=== PATIENT | female | born 1950 | race Caucasian/White ===

== ENCOUNTER → 2018-05-08 11:23 | Outpatient (CLI) | payer OTHER, SELFPAY ==
--- NOTE | 2018-05-08 | DI.MG.S_ITS ---
BILATERAL DIGITAL SCREENING MAMMOGRAM 3D/2D WITH CAD: 05/08/2018 CLINICAL: Routine screening. Comparison is made to exams dated: 03/10/2017 mammogram - [facility] and 04/06/2015 mammogram - [facility] [place]. The tissue of both breasts is heterogeneously dense. This may lower the sensitivity of mammography. Current study was also evaluated with a Computer Aided Detection (CAD) system. There is a benign biopsy clip in the left breast. No significant masses, calcifications, or other findings are seen in either breast. There has been no significant interval change. IMPRESSION: NEGATIVE There is no mammographic evidence of malignancy. A 1 year screening mammogram is recommended. This exam was interpreted at Station ID: [id number]. NOTE: For mammograms, a report in lay terms will be sent to the patient. Approximately 15% of breast malignancies will not be visualized mammographically. In the management of a palpable breast mass, a negative mammogram must not discourage biopsy of a clinically suspicious lesion. Electronically Signed By: Kwaku potter/rio:05/08/2018 16:47:36 letter sent: Normal Exam ACR BI-RADS Category 1: Negative 3341F
== END ==
PROVIDERS: Family Provider Family Medicine; PCP Family Medicine; Visit Provider Family Medicine
DX: Z12.31 Encounter for screening mammogram for malignant neoplasm of breast (principal)
CPT/HCPCS: 77063; 77067

== ENCOUNTER → 2018-09-23 11:06 | Outpatient (CLI) | payer OTHER, SELFPAY ==
--- NOTE | 2018-09-23 11:09 | DI.RAD.S_ITS ---
PROCEDURE: XR ANKLE LT MIN 3V INDICATIONS: Twisted ankle, swelling, bruising and pain TECHNIQUE: 3 views of the ankle were acquired. COMPARISON: None. FINDINGS: Bones: No fractures or dislocations. Ankle mortise is normally aligned. No suspicious bony lesions. Soft tissues: No tibiotalar joint effusion. Achilles tendon appears normal. IMPRESSION: No acute fracture. No osseous lesion. If symptoms or clinical suspicion for pathology persists, repeat plain films, or advanced imaging (CT, bone scan, or MRI) may be helpful for further assessment. Dictated by: Raisa Parry M.D. on 09/23/2018 at 10:21 Approved by: Raisa Parry M.D. on 09/23/2018 at 10:22
== END ==
PROVIDERS: PCP Family Medicine; Visit Provider Physician Assistant
DX: S99.812A Other specified injuries of left ankle, initial encounter (principal); X58.XXXA Exposure to other specified factors, initial encounter
CPT/HCPCS: 73610

== ENCOUNTER → 2018-11-09 11:28 | Outpatient (CLI) | payer OTHER, SELFPAY ==
--- NOTE | 2018-11-09 | DI.RAD.S_ITS ---
PROCEDURE: XR KNEE RT 3V INDICATIONS: KNEE PAIN TECHNIQUE: 3 views of the knee were acquired. COMPARISON: None. FINDINGS: Bones: No fractures or dislocations. No suspicious bony lesions. Scattered degenerative subchondral sclerosis and spurring. Mild lateral patellar tilt. Minimal narrowing of the medial joint space. Soft tissues: No joint effusion. No suspicious soft tissue calcifications. IMPRESSION: Mild right knee joint degeneration. Dictated by: Dave Glasgow M.D. on 11/09/2018 at 13:51 Approved by: Dave Glasgow M.D. on 11/09/2018 at 13:52
--- NOTE | 2018-11-09 | DI.RAD.S_ITS ---
PROCEDURE: XR KNEE LT 3V INDICATIONS: KNEE PAIN TECHNIQUE: 3 views of the knee were acquired. COMPARISON: None. FINDINGS: Bones: No fractures or dislocations. No suspicious bony lesions. Scattered degenerative subchondral sclerosis and spurring. Mild narrowing of the patellofemoral joint space. Soft tissues: No joint effusion. No suspicious soft tissue calcifications. IMPRESSION: Mild left knee joint degeneration as above. Dictated by: Dave Glasgow M.D. on 11/09/2018 at 13:50 Approved by: Dave Glasgow M.D. on 11/09/2018 at 13:51
== END ==
PROVIDERS: Visit Provider Student in an Organized Health Care Education/Training Program
DX: M25.561 Pain in right knee (principal); M25.562 Pain in left knee; M17.0 Bilateral primary osteoarthritis of knee
CPT/HCPCS: 73562

== ENCOUNTER → 2019-03-22 14:11 | Outpatient (CLI) | payer OTHER, SELFPAY | PROVIDERS: PCP Student in an Organized Health Care Education/Training Program; Visit Provider Student in an Organized Health Care Education/Training Program | DX: M85.88 Other specified disorders of bone density and structure, other site (principal); Z78.0 Asymptomatic menopausal state; E07.9 Disorder of thyroid, unspecified; Z87.891 Personal history of nicotine dependence | CPT/HCPCS: 77080 ==

== ENCOUNTER → 2020-04-07 11:49 | Outpatient (CLI) | payer OTHER, SELFPAY ==
--- NOTE | 2020-04-07 | DI.MG.S_ITS ---
BILATERAL DIGITAL SCREENING MAMMOGRAM 3D/2D WITH CAD: 04/07/2020 CLINICAL: Routine screening. Comparison is made to exams dated: 05/08/2018 mammogram, 03/10/2017 mammogram - [facility], and 04/06/2015 mammogram - [facility]. The tissue of both breasts is heterogeneously dense. This may lower the sensitivity of mammography. Current study was also evaluated with a Computer Aided Detection (CAD) system. There are benign calcifications in the left breast. There also is a biopsy clip in the left breast. No significant masses, calcifications, or other findings are seen in either breast. There has been no significant interval change. IMPRESSION: BENIGN There is no mammographic evidence of malignancy. A 1 year screening mammogram is recommended. This exam was interpreted at Station ID: [id number]. NOTE: For mammograms, a report in lay terms will be sent to the patient. Approximately 15% of breast malignancies will not be visualized mammographically. In the management of a palpable breast mass, a negative mammogram must not discourage biopsy of a clinically suspicious lesion. Electronically Signed By: Kwaku potter/rio:04/07/2020 15:36:57 letter sent: Normal Exam ACR BI-RADS Category 2: Benign Finding(s) 3342F
== END ==
PROVIDERS: PCP Student in an Organized Health Care Education/Training Program; Referring Provider Student in an Organized Health Care Education/Training Program; Visit Provider Student in an Organized Health Care Education/Training Program
DX: Z12.31 Encounter for screening mammogram for malignant neoplasm of breast (principal)
CPT/HCPCS: 77063; 77067

== ENCOUNTER → 2021-03-10 12:39 | Outpatient (CLI) | payer OTHER, SELFPAY | PROVIDERS: PCP Student in an Organized Health Care Education/Training Program; Referring Provider Student in an Organized Health Care Education/Training Program; Visit Provider Student in an Organized Health Care Education/Training Program | DX: Z78.0 Asymptomatic menopausal state (principal); M85.852 Other specified disorders of bone density and structure, left thigh; E07.9 Disorder of thyroid, unspecified; Z87.891 Personal history of nicotine dependence | CPT/HCPCS: 77080 ==

== ENCOUNTER → 2021-04-13 16:29 | Outpatient (ROUT) | payer OTHER, SELFPAY | PROVIDERS: PCP Student in an Organized Health Care Education/Training Program; Visit Provider Dermatology | DX: L23.9 Allergic contact dermatitis, unspecified cause (principal); L08.9 Local infection of the skin and subcutaneous tissue, unspecified | CPT/HCPCS: 87070; 87075; 87102; 87205 ==

== ENCOUNTER → 2021-04-27 16:37 | Outpatient (CLI) | payer OTHER, SELFPAY ==
--- NOTE | 2021-04-27 | DI.MG.S_ITS ---
BILATERAL DIGITAL SCREENING MAMMOGRAM 3D/2D WITH CAD: 04/27/2021 CLINICAL: Routine screening. Comparison is made to exams dated: 05/08/2018 mammogram, 03/10/2017 mammogram - [facility], and 04/06/2015 mammogram - [facility]. The tissue of both breasts is heterogeneously dense. This may lower the sensitivity of mammography. Current study was also evaluated with a Computer Aided Detection (CAD) system. There are benign calcifications in the left breast. There also is a biopsy clip in the left breast. No significant masses, calcifications, or other findings are seen in either breast. There has been no significant interval change. IMPRESSION: BENIGN There is no mammographic evidence of malignancy. A 1 year screening mammogram is recommended. This exam was interpreted at Station ID: [id number]. NOTE: For mammograms, a report in lay terms will be sent to the patient. Approximately 15% of breast malignancies will not be visualized mammographically. In the management of a palpable breast mass, a negative mammogram must not discourage biopsy of a clinically suspicious lesion. Electronically Signed By: Ace Hylton M.D., jr/rio:04/28/2021 09:26:13 letter sent: Normal Exam ACR BI-RADS Category 2: Benign Finding(s) 3342F
== END ==
PROVIDERS: PCP Student in an Organized Health Care Education/Training Program; Referring Provider Student in an Organized Health Care Education/Training Program; Visit Provider Student in an Organized Health Care Education/Training Program
DX: Z12.31 Encounter for screening mammogram for malignant neoplasm of breast (principal)
CPT/HCPCS: 77063; 77067

== ENCOUNTER → 2021-06-07 09:39 | Outpatient (CLI) | payer OTHER, SELFPAY ==
--- NOTE | 2021-06-22 12:10 | P.HOLT.S_ITS ---
[employer] Report Referral & Results Date Patient Seen: 06/07/21 Requesting provider: Nusrat Ferrera Indication: Palpitations Duration of monitoring (days): 7 Diary information: there were 10 patient triggered events and 10 patient diary entries Patient triggered events were variably associated with (within 45 seconds) sinus rhythm, simple PVCs, simple PACs, ventricular bigeminy, and SVT Patient diary events were associated with ( within 45 seconds) sinus rhythm and simple PACs Data: Minimum heart rate identified was 44 beats per minute at 03:26 on 06/12/2021 Maximum sinus heart rate was 140 beats per minute at 08:50 on 06/14/2021 maximum overall heart rate was 164 beats per minute at 12:19 on 06/11/2021 Less than 1% of identified beats were ventricular or supraventricular ectopic in origin, which would classify them as rare. 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 No serious dysrhythmias identified on this study
== END ==
PROVIDERS: PCP Student in an Organized Health Care Education/Training Program; Referring Provider Student in an Organized Health Care Education/Training Program; Visit Provider Student in an Organized Health Care Education/Training Program
DX: R00.2 Palpitations (principal)
CPT/HCPCS: 93242; 93244

== ENCOUNTER → 2021-06-07 10:02 | Outpatient (CLI) | payer OTHER, SELFPAY ==
--- NOTE | 2021-06-07 | DI.RAD.S_ITS ---
PROCEDURE: XR CHEST 2V INDICATIONS: R002 Palpitations TECHNIQUE: 2 views of the chest were acquired. COMPARISON: None. FINDINGS: Surgical changes and devices: Electronic device is seen projecting over the left chest. Lungs and pleura: Lungs are clear. No pleural effusions or pneumothorax. Mediastinum: Mediastinal contours are normal. Heart size is normal. Mild aortic atherosclerotic calcifications. Bones and chest wall: No suspicious bony abnormalities. Soft tissues appear unremarkable. Degenerative changes are seen in the spine. IMPRESSION: No acute cardiopulmonary abnormality. Dictated by: Jamison Bourne M.D. on 06/07/2021 at 13:37 Approved by: Jamison Bourne M.D. on 06/07/2021 at 13:37
== END ==
PROVIDERS: PCP Student in an Organized Health Care Education/Training Program; Referring Provider Student in an Organized Health Care Education/Training Program; Visit Provider Student in an Organized Health Care Education/Training Program
DX: R00.2 Palpitations (principal); I70.0 Atherosclerosis of aorta
CPT/HCPCS: 71046; 93242

== ENCOUNTER → 2021-06-17 09:40 | Outpatient (CLI) | payer OTHER, SELFPAY ==
--- NOTE | 2021-06-17 | DI.ECHO.S_ITS ---
[facility]---------+ [facility] +---------+ : : [address] : : : : [id number] : : : : Phone: [phone]+ Echocardiogram Report + + :Name: HUMZA YI Study Date: 06/17/2021 Height: 70 in : :[facility] ReadingLocation: Weight: 185 lb : : Gender: Female BSA: 2.0 m2 : :: 1950 Age: 70 yrs BP: 117/81 mmHg: :Reason For Study: PALPITATIONS : :Ordering Physician: CLAUDIO, : :ANNE Performed By: Carol Cohen : :Referring: ANNE SNYDER : + + Interpretation Summary Sinus bradycardia. Heart rate is 54-60 bpm. Normal LV size and wall thickness; normal wall motion and LV systolic function. EF is 60-65%. Normal chamber sizes. No significant valvular abnormalities. Procedure: A two-dimensional transthoracic echocardiogram with color flow and Doppler was performed. The study quality was technically adequate. There is no prior echocardiogram noted for this patient. The patient was in sinus bradycardia with heart rates between 54-60 bpm during the exam. Left Ventricle: The left ventricle is normal in size and wall thickness. The ejection fraction is estimated to be 60-65%. Right Ventricle: The right ventricle is normal in size and function. Atria: The left atrial size is normal. Right atrial size is normal. There is no Doppler evidence for an interatrial shunt. Mitral Valve: The mitral valve is normal in structure and function. There is mild mitral regurgitation. Aortic Valve: The aortic valve is slightly calcified. There is no aortic valve stenosis. No aortic regurgitation is present. Tricuspid Valve: The tricuspid valve is normal in structure and function. There is trace tricuspid regurgitation. Pulmonic Valve: The pulmonic valve leaflets are thin and pliable; valve motion is normal. There is mild pulmonic regurgitation. Great Vessels: The aortic root is normal size. The ascending aorta is mildly enlarged. The IVC is of normal diameter and collapses greater than 50% with a sniff. This suggests a low right atrial pressure of 3 mm Hg. Pericardium/ Pleura There is no pericardial effusion. There is no pleural effusion. MMode/2D Measurements & Calculations LVIDd: 4.6 cm LVOT diam: 2.0 cm LVIDs: 3.0 cm Ao root diam: 3.1 cm FS: 35.3 % asc Aorta Diam: 3.9 cm IVSd: 0.88 cm Ao Arch Diam (Prox Trans): 2.6 cm LVPWd: 0.73 cm LV arriaga. diameter/BSA (cm/m^2): 2.3 LV sys. diameter/BSA (cm/m^2): 1.5 LA A2 area: 16.7 cm2 RA long axis: 4.4 cm LA A4 area: 14.0 cm2 RA area: 13.7 cm2 LA length (vol): 4.8 cm RA vol: 35.8 ml LA vol: 41.4 ml RA : 17.7 ml/m2 LA vol index: 20.5 ml/m2 IVC diam: 1.5 cm RVD1 (basal): 3.3 cm RVD2 (mid): 3.0 cm TAPSE: 2.2 cm Doppler Measurements & Calculations Ao V2 max: 149.3 cm/sec LVOT Max Eleazar: 95.4 cm/sec Ao V2 mean: 107.8 cm/sec LV V1 max P.6 mmHg Ao max P.9 mmHg LV V1 VTI: 21.4 cm Ao mean P.1 mmHg DOC(I,D): 1.7 cm2 Ao V2 VTI: 38.1 cm DOC(V,D): 1.9 cm2 sev ratio: 0.56 DOC indexed to BSA (cm^2/m^2): 0.84 MV E max eleazar: 72.3 cm/sec PA V2 max: 89.8 cm/sec MV A max eleazar: 96.1 cm/sec PA V2 mean: 62.5 cm/sec MV E/A: 0.75 PA mean P.7 mmHg Med Peak E' Eleazar: 5.9 cm/sec PA pr(Accel): 36.2 mmHg E/E' med: 12.2 Lat Peak E' Eleazar: 11.0 cm/sec E/E' lat: 6.6 E/e' average: 9.4 MV dec time: 0.40 sec SV(LVOT): 64.8 ml Electronically signed by: Oumou Eric M.D. on Reading Physician:06/18/2021 12:37 AM
== END ==
PROVIDERS: PCP Student in an Organized Health Care Education/Training Program; Referring Provider Student in an Organized Health Care Education/Training Program; Visit Provider Student in an Organized Health Care Education/Training Program
DX: I34.0 Nonrheumatic mitral (valve) insufficiency (principal); R00.2 Palpitations
CPT/HCPCS: 93306

== ENCOUNTER → 2021-09-07 14:56 | Outpatient (CLI) | payer OTHER, SELFPAY ==
--- NOTE | 2021-09-07 | DI.RAD.S_ITS ---
PROCEDURE: XR KNEE LT 3V INDICATIONS: left knee pain TECHNIQUE: 3 views of the knee were acquired. COMPARISON: [facility], CR, XR KNEE RT 3V, 11/09/2018, 11:41. FINDINGS: Bones: Moderate medial lateral compartmental joint space narrowing. Small lateral marginal osteophyte present. Soft tissues: No joint effusion. No suspicious soft tissue calcifications. IMPRESSION: Moderate osteoarthritis Approved by: Peewee Schmitt M.D. on 09/07/2021 at 16:48
== END ==
PROVIDERS: PCP Student in an Organized Health Care Education/Training Program; Referring Provider Student in an Organized Health Care Education/Training Program; Visit Provider Student in an Organized Health Care Education/Training Program
DX: M25.562 Pain in left knee (principal); M17.12 Unilateral primary osteoarthritis, left knee
CPT/HCPCS: 73562

== ENCOUNTER → 2022-05-19 15:02 | Outpatient (CLI) | payer MEDICARE, OTHER, SELFPAY ==
--- NOTE | 2022-05-19 15:07 | DI.MG.S_ITS ---
BILATERAL DIGITAL SCREENING MAMMOGRAM 3D/2D WITH CAD: 05/19/2022 CLINICAL: Routine screening. Comparison is made to exams dated: 04/27/2021 mammogram, 04/07/2020 mammogram, and 05/08/2018 mammogram - [facility]. Both breasts are heterogeneously dense, which may obscure small masses (category c / 51-75% glandular tissue). Current study was also evaluated with a Computer Aided Detection (CAD) system. There are benign calcifications in the left breast. There also is a biopsy clip in the left breast. No significant masses, calcifications, or other findings are seen in either breast. There has been no significant interval change. IMPRESSION: BENIGN There is no mammographic evidence of malignancy. A 1 year screening mammogram is recommended. Based on the Tyrer Cuzick model (a risk assessment model) the patient's lifetime risk is 7.5% and her 10 year risk is 5.1%. According to the ACR, ACS, and NCCN guidelines, an annual breast MRI exam along with mammogram is recommended if the patient's lifetime risk is 20% or greater. This exam was interpreted at Station ID: [id number]. NOTE: For mammograms, a report in lay terms will be sent to the patient. Approximately 15% of breast malignancies will not be visualized mammographically. In the management of a palpable breast mass, a negative mammogram must not discourage biopsy of a clinically suspicious lesion. Electronically Signed By: Ace Hylton M.D., jr/rio:05/20/2022 13:55:41 letter sent: Normal Exam ACR BI-RADS Category 2: Benign Finding(s) 3342F
== END ==
PROVIDERS: PCP Family Medicine; Referring Provider Family Medicine; Visit Provider Family Medicine
DX: Z12.31 Encounter for screening mammogram for malignant neoplasm of breast (principal)
CPT/HCPCS: 77063; 77067

== ENCOUNTER → 2022-08-19 18:37 | Outpatient (CLI) | payer MEDICARE, OTHER, SELFPAY ==
--- NOTE | 2022-08-19 | DI.MRI.S_ITS ---
PROCEDURE: MR HEAD/BRAIN WO/W CON INDICATIONS: VERTIGO TECHNIQUE: Noncontrast axial T1 spin echo, axial T2 fast spin echo, sagittal and axial FLAIR, coronal T2 fast spin echo, axial gradient echo, axial diffusion and ADC through the brain. After the administration of contrast, axial and coronal and sagittal T1 spin echo with fat saturation through the brain. COMPARISON: None. FINDINGS: Image quality: Excellent. CSF spaces: Basal cisterns are patent. No extra-axial fluid collections. Ventricles are normal in size and shape. Brain: No midline shift. No intracranial bleeds or masses. No abnormal intracranial enhancement. There is cerebral volume loss for age. There is periventricular white matter chronic small vessel ischemic change. The brainstem appears normal. Diffusion-weighted images demonstrate no acute ischemic insults. No chronic ischemic insults. Normal intravascular flow voids are present. Skull and face: Calvarial marrow is normal in signal. Orbits appear normal. Sinuses: Sinuses and mastoids appear clear. IMPRESSION: 1. Mild volume loss and small vessel ischemic disease. 2. No acute process. No recent infarct. 3. No explanation for vertigo. Dictated by: Raisa Parry M.D. on 08/22/2022 at 9:35 Approved by: Raisa Parry M.D. on 08/22/2022 at 9:36
== END ==
PROVIDERS: PCP Family Medicine; Referring Provider Family Medicine; Visit Provider Family Medicine
DX: R42 Dizziness and giddiness (principal)
CPT/HCPCS: 70553; A9579

== ENCOUNTER → 2022-08-30 14:34 | Outpatient (CLI) | payer MEDICARE, OTHER, SELFPAY ==
--- NOTE | 2022-08-30 14:36 | DI.RAD.S_ITS ---
PROCEDURE: XR KNEE RT 3V INDICATIONS: RIGHT KNEE PAIN TECHNIQUE: 3 views of the knee were acquired. COMPARISON: [facility], , XR KNEE RT 3V, 11/09/2018, 11:41. FINDINGS: Bones: No fractures or dislocations. No suspicious bony lesions. Moderate tricompartmental degenerative joint disease,, most pronounced at the in the medial femorotibial compartment. Soft tissues: Small joint effusion. No suspicious soft tissue calcifications. IMPRESSION: 1. Moderate osteoarthritis. 2. Small knee joint effusion. Dictated by: Cindy Oates M.D. on 08/31/2022 at 10:44 Approved by: Cindy Oates M.D. on 08/31/2022 at 10:49
== END ==
PROVIDERS: PCP Family Medicine; Referring Provider Family Medicine; Visit Provider Family Medicine
DX: M25.461 Effusion, right knee (principal); M19.90 Unspecified osteoarthritis, unspecified site
CPT/HCPCS: 73562

== ENCOUNTER → 2022-10-19 06:45 | Outpatient (CLI) | payer MEDICARE, OTHER, SELFPAY ==
--- NOTE | 2022-10-19 | DI.US.S_ITS ---
PROCEDURE: US PELVIC COMPLETE INDICATIONS: VAGINAL BLEEDING TECHNIQUE: Real-time scanning was performed of the pelvic organs, with image documentation. Additional endovaginal scanning was necessary due to incomplete visualization of the adnexal and endometrial structures by transabdominal scanning. COMPARISON: None. FINDINGS: Uterus: Uterus is retroverted and normal in size at 5.7 x 3.3 x 4.3 cm. The myometrium is heterogeneous. The endometrium measures 7.4 mm combined thickness. There is a 1.2 x 0.5 x 1.2 cm mass within the endometrium. A vascular stalk is noted. There is a midline anterior intramural 1.2 x 0.7 x 1.0 cm fibroid and a left posterior intramural 2.6 x 2.0 x 2.5 cm fibroid. Ovaries: The ovaries are not visualized. Other: No pathologic free abdominal or pelvic fluid. IMPRESSION: 1. Endometrial mass with vascularity endometrial mass with vascularity. Differential considerations include endometrial carcinoma versus endometrial polyp. Findings are abnormal in a postmenopausal female. Hysterosonogram could be used to evaluate for polyp. Biopsy recommended to exclude endometrial carcinoma. We strive to produce accurate, complete, and clear reports of imaging services. To assist us in improving patient care, this report was composed using standard report templates and voice recognition software. Therefore, it may contain abnormal punctuation, insertions and/or omissions. Occasional wrong-word or sound-alike substitutions may occur. Though we review the report and make efforts to correct it, we do recommend that the report be read carefully in proper context to recognize any text inaccuracies. Dictated by: Lola Hoff M.D. on 10/19/2022 at 8:33 Approved by: Lola Hoff M.D. on 10/19/2022 at 8:36
== END ==
PROVIDERS: PCP Family Medicine; Referring Provider Family Medicine; Visit Provider Family Medicine
DX: N93.9 Abnormal uterine and vaginal bleeding, unspecified (principal); N85.9 Noninflammatory disorder of uterus, unspecified; D25.1 Intramural leiomyoma of uterus
CPT/HCPCS: 76830; 76856

== ENCOUNTER 2022-11-25 06:34 | Day surgery (SDC) | payer MEDICARE, OTHER, SELFPAY ==
[2022-11-14 12:59] VITALS: BMI 24.3
[2022-11-25] VITALS (7 sets, daily range): BP systolic 113–137; BP diastolic 59–77; PULSE 62–99; RESP 10–16; TEMP 35.9–36.6; O2SAT 66–99; BMI 24.3
--- NOTE | 2022-11-25 | PATH_ITS ---
[facility] Accession Number: [id number] No. of containers..01 Tissue . 01 Material submitted: . endometrium - ENDOMETRIAL CURETTINGS . 01 Diagnosis: Endometrial Curettings: Portions of disordered proliferative endometrial tissue with patchy regions of stromal breakdown; negative for glandular hyperplasia, cytologic atypia, or malignancy. Detached portions of squamous mucosa with focal cytologic atypia suggestive of, but not diagnostgic of, low-grade squamous intraepithelial lesion / SHANDA-1. MRV 12/07/2022 1546 Local . 01 Electronically signed: . Maeve Romero MD, Pathologist NPI- [id number] . 01 Gross description: . ENDOMETRIAL CURETTINGS: Received in formalin are minute fragments of mucoid and hemorrhagic material measuring 0.5 x 0.5 x 0.2 cm in aggregate. Submitted in toto in 1 cassette. /PEREZ 11/30/2022 0042 Local . 01 Pathologist provided ICD-10: N95.0, N94.89 . 01 CPT . 102532 Specimen Comment: A courtesy copy of this report has been sent to [phone] Performed at: 01 [facility] [address] [place] [address] [address], [place], [place] [id number] MD Kwaku Montgomery MD Phone: [phone]
[2022-11-25] MEDS: LACTATED RINGERS 1,000 ML 42 ML IV (07:11)
--- NOTE | 2022-11-25 07:37 | PM.PREOP ---
Pre-operative Note COVID-19 COVID-19 status: Not tested Criteria for continued procedure: Non-surgical alternatives not available or appropriate per current SOC Interval Note History & Physical reviewed/Exam performed by Physician: Yes Changes to H&P: No
--- NOTE | 2022-11-25 08:02 | SUR.OPER ---
Lithotomy on padded OR bed, head on pillow, arms secured on padded arm boards at <90 degrees abduction. Legs secured in padded yellow fins stirrups.
--- NOTE | 2022-11-25 08:29 | P.OP_ITS ---
Operative Date/Time/Diagnoses Date of procedure: 11/25/22 Time of procedure: 08:00 Pre-op diagnosis: Post-menopausal bleeding Endometrial mass Post-op diagnosis: same Procedure & Clinicians Procedure: Procedures Operation Date: 11/25/22 07:45 Actual Procedure Side Surgeon p Hysteroscopy with polypectomy, D&C of uterus Donnie Lipscomb MD Indications: Jennifer is a 72-year-old G0, LMP at age 50 who presents today with a three-week history of light spotting which is the 1st bleeding she is experienced since going through menopause.? She is never taken HRT but does use vaginal estradiol supplementation.? Menarche occurred at age 13 and she is had regular predictable periods throughout her reproductive life.? Patient's gynecologic history is notable for a pelvic abscess at about age 33 treated with intravenous antibiotics in an inpatient setting for about 10 days.? In her mid 40s she began having issues with ovarian cysts and underwent planned laparoscopic bilateral salpingo oophorectomy but the surgeon was only able to remove 1 ovary and 1 ovary remains in-situ.? Her periods continue to be regular without intermenstrual spotting/bleeding until age 50 when they stopped in conjunction with development menopausal symptoms.? Following initial evaluation for the postmenopausal spotting, the patient underwent a pelvic ultrasound on 10/19/2022 which showed: FINDINGS:? ?? Uterus:? Uterus is retroverted and normal in size at 5.7 x 3.3 x 4.3 cm. The myometrium is heterogeneous. ? The endometrium measures 7.4 mm combined thickness.? There is a 1.2 x 0.5 x 1.2 cm mass within the endometrium.? A vascular stalk is noted. ? There is a midline anterior intramural 1.2 x 0.7 x 1.0 cm fibroid and a left posterior intramural 2.6 x 2.0 x 2.5 cm fibroid. ? Ovaries:? The ovaries are not visualized. ? Other:? No pathologic free abdominal or pelvic fluid.? ? IMPRESSION:? ? 1. Endometrial mass with vascularity endometrial mass with vascularity.? Differential considerations include endometrial carcinoma versus endometrial polyp.? Findings are abnormal in a postmenopausal female.? Hysterosonogram could be used to evaluate for polyp.? Biopsy recommended to exclude endometrial carcinoma. We discussed the potential cause and contributing factors to the development of endometrial polyps and/or postmenopausal bleeding.? In office endometrial sampling in the presence of a focal lesion on ultrasound would not be appropriate and instead after discussion will move forward with scheduling hysteroscopy and possible removal endometrial mass with dilation and curettage of the uterus.? She presents today for her scheduled surgery. Surgeon: Donnie Lipscomb Anesthesia Type: General Operative Notes Findings: The uterus is retroverted and the endometrial cavity is normal in size and shape. Both tubal ostia were easily visualized. Arising in the posterior uterine wall is an irregular, hard, nodular submucosal mass consistent fibrotic submucous fibroid. The overlying endometrium is slightly distorted and raised due to the underlying fibroid. Otherwise there were no focal endometrial or myometrial abnormalities. Closure Type: not applicable Specimen(s): endometrial curettings Estimated blood loss (mL): 5 Blood products transfused: none Procedure in detail: With the patient under satisfactory general anesthesia in the modified dorsal lithotomy position, the perineum, vagina, and lower abdomen were prepped and draped in usual manner for hysteroscopy/D&C. A pre-surgical safety time-out was then taken in accordance with [facility] Main OR protocols. A bivalve speculum was inserted in the vagina and the cervix visualized. Single-tooth tenaculum was applied to the anterior lip of the cervix and the endocervical canal dilated to 8 mm diameter. Once dilated the hysteroscope was introduced into the endometrial cavity and using saline as a distention medium the cavity was thoroughly evaluated and documented photographically. There was no endometrial mass per se but rather elevation the endometrial surface by an underlying fibrotic, slightly nodular submucous myoma which extended deep into the myometrium. Rather than attempting resection, aggressive curettage of the area overlying the submucous myoma was performed and insurance sales representative tissue samples submitted for pathologic examination as endometrial curettings. Hysteroscopic visualization after aggressive curettage showed the all en dometrial tissues overlying the underlying submucous myoma had been removed leaving a bland, glistening white submucous myoma at the level of the decidua basalis. The hysteroscope was then removed from the endometrial cavity and the tenaculum removed from the anterior lip of the cervix. No significant bleeding was encountered and the speculum was removed from the vagina. The patient was then awakened from anesthesia and transported to the PACU for a period of observation and recovery after having tolerated the procedure well. Complications: none Post-operative Condition: stable Disposition: PACU Plan for aftercare: Routine postoperative care. Follow-up be in 2 weeks postop.
== END 2022-11-25 09:04 | disposition home or self-care (01) ==
PROVIDERS: PCP Family Medicine; Referring Provider Obstetrics & Gynecology; Visit Provider Obstetrics & Gynecology
PROC: 0UDB8ZZ Extraction of Endometrium, Via Natural or Artificial Opening Endoscopic (ICD-10-PCS; CPT 58558; principal; 2022-11-25 07:45)
DX: N94.89 Other specified conditions associated with female genital organs and menstrual cycle (principal); N95.0 Postmenopausal bleeding
CPT/HCPCS: 58558; J1100; J1885; J2405; J2704; J3010

== ENCOUNTER → 2023-03-13 10:43 | Outpatient (CLI) | payer MEDICARE, OTHER, SELFPAY ==
--- NOTE | 2023-03-13 | DI.RAD.S_ITS ---
Bone Density Report Name: HUMZA YI Age: 72 Sex: Female Ethnicity: White Date of : 1950 Indication: osteopenia; monitoring treatment; Referring Provider: ANTONIO QUINTANILLA Study: Bone densitometry was performed. Exam Date: March 13, 2023 Accession number: [id number] Bone Density: Region BMD T-score Z-score Classification AP Spine(L1-L4) 0.838 -1.9 0.4 Osteopenia Femoral Neck (Left) 0.609 -2.2 -0.2 Osteopenia Total Hip (Left) 0.740 -1.7 0.0 Osteopenia Femoral Neck (Right) 0.675 -1.6 0.4 Osteopenia Total Hip (Right) 0.772 -1.4 0.2 Osteopenia Total Hip Mean 0.756 -1.6 0.1 Osteopenia World Health Organization criteria for BMD impression classify patients as: Normal (T-score at or above -1.0), Osteopenia (T-score between -1.0 and -2.5), or Osteoporosis (T-score at or below -2.5). 10-year Fracture Risk: FRAX not reported because: Treated for osteoporosis Previous Exams: -- Region Exam Age BMD T-score BMD Change BMD Change Date g/cm2 vs Baseline vs Previous -- AP Spine (L1-L4) 03/13/2023 72 0.838 -1.9 -0.022 (-2.6%)# -0.031 (-3.6%)# 03/10/2021 70 0.869 -1.6 0.009 (1.0%) 0.009 (1.0%) 03/22/2019 68 0.861 -1.7 Total Hip(Left) 03/13/2023 72 0.740 -1.7 0.019 (2.6%)# 0.023 (3.2%)# 03/10/2021 70 0.717 -1.8 -0.004 (-0.6%) -0.004 (-0.6%) 03/22/2019 68 0.721 -1.8 Total Hip(Right) 03/13/2023 72 0.772 -1.4 0.034 (4.6%)# 0.013 (1.7%)# 03/10/2021 70 0.759 -1.5 0.021 (2.8%) 0.021 (2.8%) 03/22/2019 68 0.738 -1.7 -- *Denotes significance at 95% confidence level, LSC for AP Spine = 0.022 g/cm2, LSC for Total Hip = 0.027 g/cm2 # Denotes dissimilar scan types or analysis methods Impression: The patient has low bone mass, based on the Left Femoral Neck T-score. No significant bone loss was observed. Discussion: PATIENT UNDER TREATMENT WITH NO SIGNIFICANT BMD LOSS SINCE LAST EXAM. In an untreated patient, BMD typically declines with age. A lack of decline or gain is usually a sign that treatment is efficacious and fracture risk is reduced. It is important to ask patients whether they are taking their medications and to encourage continued and appropriate compliance with their osteoporosis therapies to reduce fracture risk. It is also important to review their risk factors and encourage appropriate calcium and vitamin D intakes, exercise, fall prevention and other lifestyle measures. Follow-Up: Consider a repeat BMD and Vertebral Fracture Assessment (VFA) exam in 2 years or sooner if medically necessary, to reassess this patient's status. Reported by: LOGAN RAZA M.D. on 03/13/2023 11:38:00 AM.
== END ==
PROVIDERS: PCP Family Medicine; Referring Provider Family Medicine; Visit Provider Family Medicine
DX: M85.89 Other specified disorders of bone density and structure, multiple sites (principal); Z78.0 Asymptomatic menopausal state
CPT/HCPCS: 77080

== ENCOUNTER → 2023-05-04 15:33 | Outpatient (CLI) | payer MEDICARE, OTHER, SELFPAY ==
--- NOTE | 2023-05-04 | DI.RAD.S_ITS ---
PROCEDURE: XR FOOT RT 2V INDICATIONS: HEEL PAIN TECHNIQUE: 3 views of the foot were acquired. COMPARISON: None. FINDINGS: Bones: No fractures or dislocations. No suspicious bony lesions. Soft tissues: No tibiotalar joint effusion. Achilles tendon appears normal. IMPRESSION: No acute bony abnormality. Approved by: Peewee Schmitt M.D. on 05/04/2023 at 19:12
== END ==
PROVIDERS: PCP Family Medicine; Referring Provider Family Medicine; Visit Provider Family Medicine
DX: M79.671 Pain in right foot (principal)
CPT/HCPCS: 73620

== ENCOUNTER → 2023-05-23 12:41 | Outpatient (CLI) | payer MEDICARE, OTHER, SELFPAY ==
--- NOTE | 2023-05-23 12:43 | DI.MG.S_ITS ---
BILATERAL DIGITAL SCREENING MAMMOGRAM 3D/2D WITH CAD: 05/23/2023 CLINICAL: Routine screening. Comparison is made to exams dated: 05/19/2022 mammogram, 04/27/2021 mammogram, and 04/07/2020 mammogram - [facility]. Both breasts are heterogeneously dense, which may obscure small masses (category c / 51-75% glandular tissue). Current study was also evaluated with a Computer Aided Detection (CAD) system. There are benign calcifications in the left breast. There also is a biopsy clip in the left breast. No significant masses, calcifications, or other findings are seen in either breast. There has been no significant interval change. IMPRESSION: BENIGN There is no mammographic evidence of malignancy. A 1 year screening mammogram is recommended. Based on the Tyrer Cuzick model (a risk assessment model) the patient's lifetime risk is 7.0% and her 10 year risk is 5.3%. According to the ACR, ACS, and NCCN guidelines, an annual breast MRI exam along with mammogram is recommended if the patient's lifetime risk is 20% or greater. This exam was interpreted at Station ID: [id number]. NOTE: For mammograms, a report in lay terms will be sent to the patient. Approximately 15% of breast malignancies will not be visualized mammographically. In the management of a palpable breast mass, a negative mammogram must not discourage biopsy of a clinically suspicious lesion. Electronically Signed By: Lola vela/rio:05/23/2023 16:24:54 letter sent: Normal Exam ACR BI-RADS Category 2: Benign Finding(s) [id number]
== END ==
PROVIDERS: PCP Family Medicine; Referring Provider Family Medicine; Visit Provider Family Medicine
DX: Z12.31 Encounter for screening mammogram for malignant neoplasm of breast (principal); R92.333 Mammographic heterogeneous density, bilateral breasts
CPT/HCPCS: 77063; 77067

== ENCOUNTER → 2023-08-26 15:44 | Outpatient (CLI) | payer MEDICARE, OTHER, SELFPAY ==
--- NOTE | 2023-08-26 | DI.MRI.S_ITS ---
PROCEDURE: MR SHOULDER RT WO CON INDICATIONS: RIGHT SHOULDER PAIN TECHNIQUE: Noncontrast oblique coronal T2 fast spin echo with fat saturation, oblique sagittal T1 spin echo and T2 fast spin echo with fat saturation, axial T1 spin echo and T2 fast spin echo with fat saturation through the shoulder. COMPARISON: [facility], [place], XR SHOULDER 2+ VIEWS RIGHT, 08/21/2023, 11:46. FINDINGS: Image quality: Diagnostic Rotator cuff: Bulk: Nearly complete atrophy of the supraspinatus. Teres minor: Intact Supraspinatus: Full-thickness tear with tendinous retraction and likely atrophy to the level of the AC joint. Infraspinatus: [id number] tendinopathy. Partial thickness interstitial and articular sided tears. Subscapularis: Moderate tendinopathy, and partial-thickness articular interstitial tears Bones and bursae: GH joint: Moderate degenerative changes. Mild effusion. Subchondral cyst is seen in the posterior glenoid. AC joint: Moderate to severe degenerative changes Humeral head: No acute fracture Scapula and acromion: No acute fracture Bursa: Bursal fluid extends from the glenohumeral joint Capsule: Labrum: Possible small superior labral tear. Diffuse attenuation likely from chronic degenerative changes. Long head biceps tendon: Possible small split tear, in addition to [id number]-[id number] tendinopathy. There is tenosynovitis in the bicipital groove. IGHL: Mild thickening. Rotator interval: Partially faced Soft tissues: No axillary adenopathy. Lungs are not well seen. 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 Tendinopathy and partial-thickness tears involving the other rotator cuff components. Moderate glenohumeral and moderate to severe acromioclavicular degenerative changes. Glenohumeral effusion extends to the bursa. Possible small superior labral tear extending to the long head biceps tendon, with tendinopathy. Partially effaced rotator interval, possibly capsulitis. Dictated by: Carlos Alejandra M.D. on 08/28/2023 at 10:58 Approved by: Carlos Alejandra M.D. on 08/28/2023 at 11:11
== END ==
LOC: MRI 15:45
PROVIDERS: PCP Family Medicine; Referring Provider Orthopaedic Surgery; Visit Provider Orthopaedic Surgery
DX: M75.121 Complete rotator cuff tear or rupture of right shoulder, not specified as traumatic (principal); M25.511 Pain in right shoulder
CPT/HCPCS: 73221

== ENCOUNTER → 2024-08-29 08:09 | Outpatient (CLI) | payer MEDICARE, OTHER, SELFPAY ==
--- NOTE | 2024-08-29 08:12 | DI.MG.S_ITS ---
MM screening mammo BI: 08/29/2024. BI-RADS: 1 CLINICAL: 73-year old female for bilateral screening mammogram. Tyrer-Cuzick lifetime risk of 5.5%. No personal or first-degree family history of breast cancer. PRIOR EXAMS 05/23/2023, 05/19/2022, 04/27/2021, 04/07/2020, 05/08/2018, 03/10/2017. MAMMOGRAPHY TECHNIQUE: 2D and 3D (tomosynthesis) digital mammographic views obtained, with additional images as needed for full coverage. Current study was also evaluated with a Computer Aided Detection (CAD) system. DENSITY C. The breasts are heterogeneously dense, which may obscure small masses. MAMMOGRAPHY FINDINGS Bilateral: No suspicious mass, asymmetry, microcalcification, or other abnormality seen. IMPRESSION: * No evidence of malignancy. RECOMMENDATIONS Bilateral * Annual screening mammography. OVERALL ASSESSMENT CATEGORY BI-RADS-1: Negative. The [employer] recommends annual screening mammography beginning at age 40 for women with average risk of breast cancer. ELECTRONICALLY SIGNED: Judy Antony M.D. on 08/30/2024 at 01:24:42 AM PT Interpreting Station ID: [id number]
== END ==
PROVIDERS: PCP Family Medicine; Referring Provider Family Medicine; Visit Provider Family Medicine
DX: Z12.31 Encounter for screening mammogram for malignant neoplasm of breast (principal); R92.333 Mammographic heterogeneous density, bilateral breasts
CPT/HCPCS: 77063; 77067

== ENCOUNTER → 2024-09-19 11:32 | Outpatient (CLI) | payer MEDICARE, OTHER, SELFPAY ==
--- NOTE | 2024-09-19 | DI.RAD.S_ITS ---
PROCEDURE: XR CERVICAL SPINE 4V OR 5V INDICATIONS: NECK PAIN TECHNIQUE: 5 views of the cervical spine acquired. COMPARISON: None. FINDINGS: Bones: No fractures or dislocations to the T1 level. Retrolisthesis of C4 on C5 measures 0.3 cm. Moderate disc height loss at the C3-C4 through C5-C6 levels with adjacent endplate sclerosis and anterior osteophytosis. Oblique images demonstrate no bony foraminal stenoses. Soft tissues: No prevertebral soft tissue swelling. IMPRESSION: Degenerative change of the cervical spine including retrolisthesis of C4 on C5 without evidence of acute osseous abnormality. Dictated by: Manjit Li M.D. on 09/20/2024 at 2:53 Approved by: Manjit Li M.D. on 09/20/2024 at 2:55
== END ==
PROVIDERS: PCP Family Medicine; Referring Provider Family Medicine; Visit Provider Family Medicine
DX: M47.812 Spondylosis without myelopathy or radiculopathy, cervical region (principal); M43.12 Spondylolisthesis, cervical region; M54.2 Cervicalgia
CPT/HCPCS: 72050

== ENCOUNTER → 2025-04-08 10:37 | Outpatient (CLI) | payer MEDICARE, OTHER, SELFPAY ==
--- NOTE | 2025-04-08 10:38 | DI.RAD.S_ITS ---
PROCEDURE: XR DEXA AXIAL SKELETON INDICATIONS: Postmenopausal screening COMPARISON: [facility], CR, XR DEXA AXIAL SKELETON, 03/13/2023, 11:08. [facility], CR, XR DEXA AXIAL SKELETON, 03/10/2021, 13:15. FINDINGS: Lumbar Spine: Bone mineral density 0.846 g/cm2, T score -1.8. Since the most recent prior study, there has been no statistically significant change in bone mineral density. Left Femoral Neck: Bone mineral density 0.582 g/cm2, T score -2.4. Left Hip: Bone mineral density 0.716 g/cm2, T score -1.8. Since the most recent prior study, there has been no statistically significant change in bone mineral density. Fracture Risk Calculation (when applicable): 10-year fracture risk of a major osteoporotic fracture 15% and of a hip fracture 4.4%. (T score greater or equal to -1.0 to: NORMAL) (T score from -1.1 to -2.4: OSTEOPENIA) (T score less than or equal to -2.5: OSTEOPOROSIS) IMPRESSION: 1. By WHO criteria, patient has osteopenia. 2. Ten-year fracture probability by FRAX of >= 3% for hip fracture or >=20% for major osteoporotic fracture. 3. No statistically significant interval change in bone mineral density when compared to the most recent prior exam. Follow-up guidelines as follows: Osteoporosis: Consider a repeat DEXA and Vertebral Fracture Assessment (VFA) exam in 2 years or sooner if medically necessary, to reassess this patient's status. Osteopenia: Consider a repeat DEXA in 2-3 years to reassess this patient's status, or if there is a new clinical indication. Normal: Consider a repeat DEXA in 5 years or sooner, or if there is a new clinical indication. All treatment decisions require clinical judgment and consideration of individual patient factors, including patient preferences, comorbidities, previous drug use, risk factors not captured in the FRAX model (e.g., frailty, falls, vitamin D deficiency, increased bone turnover, interval significant decline in bone density ) and possible under- or over-estimation of fracture risk by FRAX. In addition, the NOF Guide recommends that FDA-approved medical therapies be considered in postmenopausal women and men age >= 50 years with a: * Hip or vertebral (clinical or morphometric) fracture * T-score of <=-2.5 at the spine or hip * Ten-year fracture probability by FRAX of >= 3% for hip fracture or >=20% for major osteoporotic fracture. Approved by: Jamison Bourne M.D. on 04/08/2025 at 17:31
--- NOTE | 2025-04-08 10:38 | DI.CT.S_ITS ---
PROCEDURE: CT ABDOMEN PELVIS WO CON INDICATIONS: Postmenopausal screening, lower back pains TECHNIQUE: CT of the abdomen and pelvis was obtained without intravenous contrast. Coronal and sagittal reformats were performed. For radiation dose reduction, the following was used: automated exposure control, adjustment of mA and/or kV according to patient size. COMPARISON: None. FINDINGS: Image quality: Diagnostic. Lower Chest: No significant findings. Small incidental hiatal hernia. Dependent atelectasis. Calcified right infrahilar nodes in scattered calcified lung granulomas. Coronary artery calcifications are present. ABDOMEN: Liver: No contour-deforming mass. Gallbladder: No radiopaque gallstones or wall thickening. Biliary ducts: No biliary dilation. Pancreas: No ductal dilation. Spleen: Prominent calcified splenic granulomas. Otherwise unremarkable. Adrenal Glands: No adrenal nodules. Kidneys and Ureters: No hydronephrosis. No contour-deforming mass. Stomach and Bowel: Normal colonic caliber, without significant wall thickening. Colon diverticulosis is noted without inflammatory changes concerning for acute diverticulitis. Normal appendix. Peritoneum: No abnormal intraperitoneal fluid. No free air. Ventral Wall: No significant hernia. Abdominal Nodes: No retroperitoneal or mesenteric adenopathy by size criteria. Vessels: Aorta and inferior vena cava are normal in size. Moderate atheromatous plaques are noted in the nonaneurysmal abdominal aorta. PELVIS: Pelvic Organs: Unremarkable. Bladder: Unremarkable. Pelvic Nodes: No enlarged lymph nodes. Miscellaneous: Small fat containing right inguinal hernia. No left inguinal hernia. Bones: No aggressive osseous abnormality. Grade 1 L4 on L5 anterolisthesis. Htmztfsm-cw-lixajh T10-11 and T11-12 disc narrowing. Moderate L2-3 disc narrowing. Moderate L4-5 and L5-S1 facet arthropathy. Small disc bulges are present at L4- 5 and L5-S1. No high-grade central canal stenosis. Mild bilateral L4-5 and mild to moderate bilateral L5-S1 foraminal stenosis. IMPRESSION: No acute abnormality in abdomen or pelvis. Multilevel degenerative disc and facet arthropathy most severely affects L4-5 and L5-S1. No high-grade central canal or foraminal stenosis. If symptoms persist, recommend outpatient MRI examination. Dictated by: Dee Ruff M.D. on 04/08/2025 at 20:36 Approved by: Dee Ruff M.D. on 04/08/2025 at 20:45
== END ==
LOC: RAD 10:38
PROVIDERS: PCP Family Medicine; Referring Provider Family Medicine; Visit Provider Family Medicine
DX: M43.16 Spondylolisthesis, lumbar region (principal); M47.816 Spondylosis without myelopathy or radiculopathy, lumbar region; M47.817 Spondylosis without myelopathy or radiculopathy, lumbosacral region; M48.061 Spinal stenosis, lumbar region without neurogenic claudication; M48.07 Spinal stenosis, lumbosacral region; M51.369 Other intervertebral disc degeneration, lumbar region without mention of lumbar back pain or lower extremity pain; M51.379 Other intervertebral disc degeneration, lumbosacral region without mention of lumbar back pain or lower extremity pain; R10.A3 Flank pain, bilateral; M85.89 Other specified disorders of bone density and structure, multiple sites; Z78.0 Asymptomatic menopausal state; K44.9 Diaphragmatic hernia without obstruction or gangrene; I51.0 Cardiac septal defect, acquired; K57.90 Diverticulosis of intestine, part unspecified, without perforation or abscess without bleeding; I70.0 Atherosclerosis of aorta; K40.90 Unilateral inguinal hernia, without obstruction or gangrene, not specified as recurrent
CPT/HCPCS: 74176; 77080